=== PATIENT | female | born 1970 | race Caucasian/White ===

== ENCOUNTER 2022-04-22 20:26 | Emergency (ER) | payer MEDICAID ==
[~2022-04-22] VITALS: Ht 152.4 cm; Wt 58.2 kg
[2022-04-22 20:52] VITALS: BP 157/78
[2022-04-22] MEDS ORDERED: ASPIRIN 325 MG TAB PO ONE (21:25)
--- NOTE | 2022-04-22 21:30 | NUR ---
MOISÉS PATEL STATED THAT IV WAS NOT NECESSARY IF BLOOD WAS ALREADY COLLECTED.
[2022-04-22 21:54] LABS: BASOPHILS # (AUTO) 0.1 K/uL (0.00-0.22); BASOPHILS % (AUTO) 0.4 % (0.0-2.0); EOSINOPHILS # (AUTO) 0.3 K/uL (0-0.4); EOSINOPHILS % (AUTO) 2.4 % (0.0-4.0); HEMOGLOBIN 14.3 g/dL (12.0-16.0); LYMPHOCYTES # (AUTO) 4.4 K/uL (2.5-16.5); LYMPHOCYTES % (AUTO) 35.1 % (20.5-51.1); MEAN CORPUSCULAR HEMOGLOBIN 29 pg (27-31); MEAN CORPUSCULAR HGB CONC 34 g/dL (33-37); MEAN CORPUSCULAR VOLUME 86.3 fL (80-94); NEUTROPHILS # (AUTO) 6.8 K/uL (1.8-7.7); NEUTROPHILS % (AUTO) 54.1 % (42.2-75.2); PLATELET COUNT (AUTO) 267 K/uL (140-450); RED BLOOD CELL COUNT(AUTO) 4.86 MIL/uL (4.20-5.40); WHITE BLOOD COUNT (AUTO) 12.6 K/uL (4.8-10.8)
--- NOTE | 2022-04-22 21:55 | NUR ---
PATIETN TO [facility]
[2022-04-22 22:23] LABS: ALBUMIN 3.8 g/dL (3.4-5.0); ANION GAP 13.6 (8-16); ASPARTATE AMINOTRANSFERASE 30 U/L (15-37); CARBON DIOXIDE 28.4 mmol/L (21-32); CHLORIDE 103 mmol/L (98-107); CREATININE 0.9 mg/dL (0.6-1.3); GFR ARICAN-AMERICAN 85 mL/min (>90); GLUCOSE 142 mg/dL (74-106); LIPASE 186 U/L (73-393); SODIUM SERUM 141 mmol/L (136-145); TOTAL BILIRUBIN 0.2 mg/dL (0.0-1.0); UREA NITROGEN, BLOOD 14 mg/dL (7-18)
--- NOTE | 2022-04-22 23:55 | NUR ---
Patient discharged with v/s stable. Written and verbal after care instructions given and explained. Patient verbalized understanding. Ambulatory with steady gait. All questions addressed prior to discharge. Advised to follow up with PMD.
== END 2022-04-22 23:55 | disposition home or self-care (01) ==
LOC: MED 20:26
DX: R00.2 Palpitations (principal)
CPT/HCPCS: 36415; 71045; 80053; 83690; 84484; 85025; 93005; 99285

== ENCOUNTER 2022-10-23 09:39 | Emergency (ER) | payer MEDICAID ==
[~2022-10-23] VITALS: Ht 152.4 cm; Wt 77.1 kg
[2022-10-23 09:45] VITALS: BP 175/90
--- NOTE | 2022-10-23 09:47 | NUR ---
AMBULATED TO ER BED 7
--- NOTE | 2022-10-23 10:20 | NUR ---
PT C/O EPIGASTRIC PAIN RADIATING TO RUQ AND RU BACK X 1HR. SAFETY MAINTAINED. HX: KIDNEY STONES, THYROID, CYST, GASTRITIS
--- NOTE | 2022-10-23 10:43 | NUR ---
Patient taken to CT via gurney.
[2022-10-23] MEDS ORDERED: NACL 0.9% 1,000 ML IV ONE (10:45)
[2022-10-23] MEDS ORDERED: KETOROLAC 15 MG/ML VIAL IVP ONE (10:45)
--- NOTE | 2022-10-23 10:48 | NUR ---
Patient returned from CT.
[2022-10-23 10:49] LABS: BASOPHILS # (AUTO) 0.1 K/uL (0.00-0.22); BASOPHILS % (AUTO) 0.6 % (0.0-2.0); EOSINOPHILS # (AUTO) 0.4 K/uL (0-0.4); EOSINOPHILS % (AUTO) 2.7 % (0.0-4.0); HEMATOCRIT 46.4 % (36-48); HEMOGLOBIN 15.6 g/dL (12.0-16.0); LYMPHOCYTES % (AUTO) 29.8 % (20.5-51.1); MEAN CORPUSCULAR HEMOGLOBIN 29 pg (27-31); MEAN CORPUSCULAR HGB CONC 34 g/dL (33-37); MEAN CORPUSCULAR VOLUME 86.4 fL (80-94); MONOCYTES # (AUTO) 1.2 K/uL (0.8-1.0); MONOCYTES % (AUTO) 9.3 % (1.7-9.3); NEUTROPHILS # (AUTO) 7.7 K/uL (1.8-7.7); NEUTROPHILS % (AUTO) 57.6 % (42.2-75.2); PLATELET COUNT (AUTO) 283 K/uL (140-450); RED BLOOD CELL COUNT(AUTO) 5.37 MIL/uL (4.20-5.40); RED CELL DISTRIBUTION WIDTH 13.4 % (11.6-13.7); WHITE BLOOD COUNT (AUTO) 13.3 K/uL (4.8-10.8)
[2022-10-23 11:16] LABS: APPEARANCE,URINE CLEAR (CLEAR); BILIRUBIN,URINE NEGATIVE (NEGATIVE); BLOOD, URINE TRACE-I (NEGATIVE); COLOR,URINE OTHER (YELLOW); LEUKOCYTE ESTERASE ,URINE NEGATIVE (NEGATIVE); NITRITE, URINE NEGATIVE (NEGATIVE); UGLUCOSE NEGATIVE (NEGATIVE)
[2022-10-23 11:17] LABS: ALBUMIN 4.2 g/dL (3.4-5.0); ANION GAP 12.1 (8-16); CARBON DIOXIDE 29.3 mmol/L (21-32); CREATININE 0.9 mg/dL (0.6-1.3); POTASSIUM 4.4 mmol/L (3.5-5.1); TOTAL BILIRUBIN 0.3 mg/dL (0.0-1.0)
--- NOTE | 2022-10-23 11:55 | NUR ---
Dr. Bautista re-evaluating patient at bedside.
[2022-10-23] MEDS ORDERED: ONDA-188 SL (11:58)
--- NOTE | 2022-10-23 12:12 | NUR ---
IV removed, catheter intact and site benign. Applied folded 4x4 gauze and tape to stop bleeding.
[2022-10-23 12:15] VITALS: BP 137/77
== END 2022-10-23 12:17 | disposition home or self-care (01) ==
LOC: MED 09:39
DX: K80.50 Calculus of bile duct without cholangitis or cholecystitis without obstruction (principal); E03.9 Hypothyroidism, unspecified; E78.5 Hyperlipidemia, unspecified; Z98.890 Other specified postprocedural states; Z88.5 Allergy status to narcotic agent
CPT/HCPCS: 36415; 74176; 76705; 80053; 81003; 81025; 83690; 85025; 96361; 96374; 99285; J1885; J7030; Q0092

== ENCOUNTER 2022-11-10 03:15 | Emergency (ER) | payer MEDICAID ==
[~2022-11-10] VITALS: Ht 160 cm; Wt 60.8 kg
[~2022-11-10 03:15] MED LIST: ONDA-188 SL
[2022-11-10 03:42] VITALS: BP 150/97; PULSE 68; RESP 14; TEMP 97.2; O2SAT 96
--- NOTE | 2022-11-10 03:46 | NUR ---
SPOKE WITH PATIENT, TRANSLATION PROVIDED BY [facility], #[id number] PATIENT REPORTS THAT PALPITATIONS CAUSED HER TO AWAKEN FROM HER SLEEP, SHE STATES THAT SHE FELT LIKE SHE HAD TROUBLE BREATHING AND HER MOUTH BECAME DRY, SLIGHT CHEST DISCOMFORT. PATIENT IS BEING FOLLOWED BY A TEAROOM HOST AND THEY ARE STILL PERFORMING TESTS ON HER.
--- NOTE | 2022-11-10 03:50 | NUR ---
Pt roomed to ED RM 11.
[2022-11-10] MEDS ORDERED: ENALAPRILAT 2.5 MG/2 ML VIAL IVP ONE (04:10)
--- NOTE | 2022-11-10 04:17 | NUR ---
RAD at bedside for imaging.
[2022-11-10 05:34] LABS: BASOPHILS % (AUTO) 0.4 % (0.0-2.0); EOSINOPHILS # (AUTO) 0.3 K/uL (0-0.4); EOSINOPHILS % (AUTO) 2.9 % (0.0-4.0); HEMATOCRIT 40.3 % (36-48); HEMOGLOBIN 13.7 g/dL (12.0-16.0); LYMPHOCYTES # (AUTO) 3.5 K/uL (2.5-16.5); LYMPHOCYTES % (AUTO) 31.7 % (20.5-51.1); MEAN CORPUSCULAR HEMOGLOBIN 29 pg (27-31); MEAN CORPUSCULAR HGB CONC 34 g/dL (33-37); MEAN CORPUSCULAR VOLUME 86.2 fL (80-94); MONOCYTES # (AUTO) 0.9 K/uL (0.8-1.0); MONOCYTES % (AUTO) 8.5 % (1.7-9.3); NEUTROPHILS # (AUTO) 6.2 K/uL (1.8-7.7); NEUTROPHILS % (AUTO) 56.5 % (42.2-75.2); PLATELET COUNT (AUTO) 260 K/uL (140-450); RED BLOOD CELL COUNT(AUTO) 4.67 MIL/uL (4.20-5.40); RED CELL DISTRIBUTION WIDTH 13.1 % (11.6-13.7); WHITE BLOOD COUNT (AUTO) 11.1 K/uL (4.8-10.8)
[2022-11-10] MEDS ORDERED: TELM40TA1 PO (06:07)
[2022-11-10 06:09] LABS: ALBUMIN 3.5 g/dL (3.4-5.0); ANION GAP 10.7 (8-16); CARBON DIOXIDE 27.6 mmol/L (21-32); POTASSIUM 4.3 mmol/L (3.5-5.1); TOTAL BILIRUBIN 0.2 mg/dL (0.0-1.0)
[2022-11-10 06:20] VITALS: BP 140/69; PULSE 82; RESP 15; TEMP 97.4; O2SAT 96
--- NOTE | 2022-11-10 06:23 | NUR ---
Patient discharged with v/s stable. Written and verbal after care instructions given and explained. Patient alert, oriented and verbalized understanding of instructions. All questions addressed prior to discharge. ID band removed. Patient advised to follow up with PMD. Rx of Micardis sent to preferred pharmacy. Patient educated on indication of medication including possible reaction and side effects. Opportunity to ask questions provided and answered.
== END 2022-11-10 06:23 | disposition home or self-care (01) ==
LOC: MED 03:15
DX: R00.2 Palpitations (principal); I10 Essential (primary) hypertension; F41.9 Anxiety disorder, unspecified; E03.9 Hypothyroidism, unspecified; Z79.899 Other long term (current) drug therapy; Z88.5 Allergy status to narcotic agent
CPT/HCPCS: 36415; 71045; 80053; 83880; 84484; 85025; 93005; 96374; 99285; J3490; Q0092

== ENCOUNTER 2023-08-06 18:24 | Emergency (ER) | payer MEDICAID, OTHER ==
[~2023-08-06] VITALS: Ht 144.8 cm; Wt 59.4 kg
[~2023-08-06 18:24] MED LIST changes: +TELM40TA1 PO
[2023-08-06 18:52] VITALS: BP 185/89; PULSE 80; RESP 19; TEMP 98.3; O2SAT 98
[2023-08-06 19:31] LABS: BASOPHILS # (AUTO) 0.1 K/uL (0.00-0.22); EOSINOPHILS # (AUTO) 0.3 K/uL (0-0.4); EOSINOPHILS % (AUTO) 2.2 % (0.0-4.0); HEMATOCRIT 42.3 % (36-48); HEMOGLOBIN 14.7 g/dL (12.0-16.0); LYMPHOCYTES # (AUTO) 3.7 K/uL (2.5-16.5); LYMPHOCYTES % (AUTO) 30.6 % (20.5-51.1); MEAN CORPUSCULAR HEMOGLOBIN 30 pg (27-31); MEAN CORPUSCULAR HGB CONC 35 g/dL (33-37); MEAN CORPUSCULAR VOLUME 86.7 fL (80-94); MONOCYTES # (AUTO) 1.1 K/uL (0.8-1.0); MONOCYTES % (AUTO) 9.2 % (1.7-9.3); NEUTROPHILS # (AUTO) 6.9 K/uL (1.8-7.7); PLATELET COUNT (AUTO) 260 K/uL (140-450); RED BLOOD CELL COUNT(AUTO) 4.88 MIL/uL (4.20-5.40); RED CELL DISTRIBUTION WIDTH 13.1 % (11.6-13.7); WHITE BLOOD COUNT (AUTO) 12.1 K/uL (4.8-10.8)
[2023-08-06 19:41] LABS: ANION GAP 10.6 (8-16); CALCIUM 9.1 mg/dL (8.5-10.1); CARBON DIOXIDE 30.5 mmol/L (21-32); CREATININE 0.8 mg/dL (0.6-1.3); POTASSIUM 4.1 mmol/L (3.5-5.1)
[2023-08-06 20:14] LABS: INR 0.94 (0.8-1.2); PARTIAL THROMBOPLASTIN TIME 23.2 secs (22-35.6); PROTHROMBIN TIME 9.9 secs (10.8-13.4)
[2023-08-06 21:35] VITALS: BP 155/69; PULSE 75; RESP 19; TEMP 98.3; O2SAT 98
== END 2023-08-06 21:35 | disposition home or self-care (01) ==
LOC: MED 18:24
DX: R94.31 Abnormal electrocardiogram [ECG] [EKG] (principal); R00.2 Palpitations; E11.9 Type 2 diabetes mellitus without complications; I10 Essential (primary) hypertension; Z79.4 Long term (current) use of insulin; Z79.899 Other long term (current) drug therapy
CPT/HCPCS: 36415; 71045; 80048; 83880; 84484; 85025; 85610; 85730; 93005; 99285

== ENCOUNTER 2023-10-19 21:22 | Emergency (ER) | payer OTHER ==
[~2023-10-19] VITALS: Ht 137.2 cm; Wt 61.7 kg
[2023-10-19 21:49] VITALS: BP 164/89; PULSE 67; RESP 18; TEMP 97.5; O2SAT 98
[2023-10-19 22:12] LABS: APPEARANCE,URINE CLEAR (CLEAR); BILIRUBIN,URINE NEGATIVE (NEGATIVE); BLOOD, URINE 1+ (NEGATIVE); COLOR,URINE YELLOW (YELLOW); LEUKOCYTE ESTERASE ,URINE NEGATIVE (NEGATIVE); NITRITE, URINE NEGATIVE (NEGATIVE); PROTEIN,URINE NEGATIVE (NEGATIVE); UGLUCOSE NEGATIVE (NEGATIVE); UROBILINOGEN,URINE 0.2 EU/dL (0.2 - 1)
[2023-10-20 00:27] LABS: BASOPHILS # (AUTO) 0.1 K/uL (0.00-0.22); BASOPHILS % (AUTO) 0.7 % (0.0-2.0); EOSINOPHILS # (AUTO) 0.3 K/uL (0-0.4); EOSINOPHILS % (AUTO) 2.1 % (0.0-4.0); HEMATOCRIT 38.9 % (36-48); HEMOGLOBIN 13.2 g/dL (12.0-16.0); LYMPHOCYTES # (AUTO) 3.6 K/uL (2.5-16.5); MEAN CORPUSCULAR HEMOGLOBIN 30 pg (27-31); MEAN CORPUSCULAR HGB CONC 34 g/dL (33-37); MEAN CORPUSCULAR VOLUME 87.8 fL (80-94); MONOCYTES # (AUTO) 1.3 K/uL (0.8-1.0); MONOCYTES % (AUTO) 9.9 % (1.7-9.3); NEUTROPHILS # (AUTO) 7.6 K/uL (1.8-7.7); NEUTROPHILS % (AUTO) 59.3 % (42.2-75.2); PLATELET COUNT (AUTO) 247 K/uL (140-450); RED BLOOD CELL COUNT(AUTO) 4.43 MIL/uL (4.20-5.40); WHITE BLOOD COUNT (AUTO) 12.9 K/uL (4.8-10.8)
[2023-10-20] MEDS: KETOROLAC 30 MG/ML VIAL IM ONE (00:41)
[2023-10-20 00:46] LABS: ANION GAP 10.8 (8-16); CALCIUM 8.9 mg/dL (8.5-10.1); CARBON DIOXIDE 29.3 mmol/L (21-32); CREATININE 0.8 mg/dL (0.6-1.3); POTASSIUM 4.1 mmol/L (3.5-5.1)
[2023-10-20] MEDS ORDERED: ACET-10509 PO (03:28)
[2023-10-20 03:54] VITALS: BP 152/89; PULSE 67; RESP 18; TEMP 97.5; O2SAT 98
== END 2023-10-20 03:54 | disposition home or self-care (01) ==
LOC: MED 21:22
DX: N20.0 Calculus of kidney (principal); N83.202 Unspecified ovarian cyst, left side; E03.9 Hypothyroidism, unspecified; E11.9 Type 2 diabetes mellitus without complications; I10 Essential (primary) hypertension; Z88.5 Allergy status to narcotic agent; Z79.4 Long term (current) use of insulin; Z79.899 Other long term (current) drug therapy
CPT/HCPCS: 36415; 74176; 80048; 81003; 81025; 85025; 87086; 96372; 99285; J1885